=== PATIENT | female | born 1990 | race Caucasian/White ===

== ENCOUNTER 2017-03-09 05:08 | Day surgery (SDC) | payer OTHER ==
[2017-03-07 12:41] VITALS: BMI 23.8
--- NOTE | 2017-03-09 08:29 | HP ---
History & Physical Update - History History: No Change - Physical Physical: No Change - Assessment Assessment: No Change - Plan Plan: No Change (High grade cervical dysplasia - for LEEP cone biopsy)
[2017-03-09] MEDS ORDERED: LACTATED RINGERS SOLUTION 1,000 ML IV SCH (08:30)
[2017-03-09] MEDS ORDERED: ACETAMINOPHEN 325 MG TABLET (FP) PO PRN (08:30)
[2017-03-09] MEDS ORDERED: IBUPROFEN 800 MG/8 ML IJ IVPB PRN (08:30)
[2017-03-09] MEDS ORDERED: MIDAZOLAM HCL 2 MG/2 ML SINGLE DOSE VIAL ONE (09:04)
[2017-03-09] MEDS ORDERED: PROPOFOL 20 ML ONE (09:04)
[2017-03-09] MEDS ORDERED: LIDOCAINE HCL/PF 2% SDV 5ML VIAL ONE (09:05)
[2017-03-09] MEDS ORDERED: KETOROLAC TROMETHAMINE 30 MG/1 ML VIAL ONE (09:05)
[2017-03-09] MEDS ORDERED: DEXAMETHASONE SOD PHOSPHATE 4 MG/1 ML VIAL ONE (09:05)
[2017-03-09] MEDS ORDERED: FERRIC SUBSULFATE 500 ML BOTTLE TP ONE (09:37)
--- NOTE | 2017-03-09 10:03 | OP ---
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 endocervical biopsy Estimated Blood Loss (mls): 25 Operative Report Dictated: Yes
[2017-03-09] MEDS ORDERED: ONDANSETRON 4 MG/2 ML VIAL IVPUSH PRN (10:14)
[2017-03-09] MEDS ORDERED: ACETAMINOPHEN 1000 MG/100 ML VIAL (NON FORMULARY) IVPB ONE (10:14)
[2017-03-09] MEDS ORDERED: oxyCODONE HCL 5 MG TABLET PO PRN (10:14)
[2017-03-09 11:07] VITALS: TEMP 98.1
[2017-03-09 13:17] VITALS: BP 114/72; PULSE 70
--- NOTE | 2017-03-10 07:49 | OP ---
DATE OF OPERATION: DATE OF DICTATION: 03/09/2017 PREOPERATIVE DIAGNOSIS: Cervical dysplasia. POSTOPERATIVE DIAGNOSIS: Cervical dysplasia. PROCEDURE PERFORMED: Loop electrosurgical excision procedure cone biopsy. SURGEON: Janneth Lino DO ANESTHESIA: General. ANESTHESIOLOGIST: Rene Lay CRNA COMPLICATIONS: None. ESTIMATED BLOOD LOSS: 25 mL. SPECIMENS: Specimens removed included cervical cone biopsy. COUNTS: Sponge and instrument count correct at the end of the case. DISPOSITION: Stable to PACU. INDICATIONS: The patient is 26-year-old female who was diagnosed in the office with high-grade cervical dysplasia. It was recommended at this time to undergo an excisional procedure. The patient was consented on her options and signed consents for a LEEP cone biopsy procedure in the office. The patient was admitted to [facility] on March 09, 2017. Consents were reconfirmed. DESCRIPTION OF PROCEDURE: The patient was taken back to the operating room, where she was given general anesthesia and then placed in the dorsal lithotomy position. She was prepped and draped in the usual sterile fashion, and a hard time-out was performed. A plastic speculum was placed inside the vagina. Using the large LEEP loop, a cone biopsy was collected in a single pass. The specimen was sent to Pathology for permanent evaluation. A second pass was taken for another cervical biopsy with the small LEEP loop, secondary to positive endocervical curettage in the office. Bleeding was controlled with roller-ball cautery at this time and Monsel solution. After hemostasis was achieved, all instruments were removed from the surgical field. Counts were reported to be correct. The patient tolerated the procedure well and was recovering in stable condition in the PACU after the procedure. JANNETH LINO DO /[id number]
--- NOTE | 2017-03-12 12:30 | PATH ---
Surgical Pathology Report Patient Name: ANYI RAMOS [facility]. Rec. #: [id number] /Age/Gender: 1990 (Age: 26) / F Account: [id number] Location: [facility] SURGICAL Taken: 03/09/2017 Received: 03/09/2017 Reported: 03/12/2017 Physicians: Janneth Lino M.D. Specimen(s) Received A: LEEP CONE BIOPSY, ENDOCERVICAL B: LEEP CONE BIOPSY Clinical History HPV/cervical dysplasia Final Diagnosis A. CERVIX, ENDOCERVICAL LEEP CONE BIOPSY: ENDOCERVICAL MUCOSA WITH CHRONIC CERVICITIS. NEGATIVE FOR DYSPLASIA. B. CERVIX, LEEP CONE BIOPSY: CERVICAL SQUAMOUS AND ENDOCERVICAL MUCOSA WITH HIGH GRADE SQUAMOUS INTRAEPITHELIAL LESION (CERVICAL INTRAEPITHELIAL NEOPLASIA 3/TRINA 3) WITH FOCAL GLANDULAR INVOLVEMENT IN 6-9:00 AND 9-12:00 QUADRANTS; FOCI OF LOW GRADE SQUAMOUS INTRAEPITHELIAL LESION ALSO PRESENT. SURGICAL RESECTION MARGINS: FINAL RESECTION MARGINS APPEAR NEGATIVE FOR HIGH GRADE DYSPLASIA (ALSO REFER TO PART A). TRANSFORMATION ZONE: PRESENT. Electronically Signed Mil Muniz M.D. Gross Description A. Received in formalin, labeled "LEEP cone biopsy, endocervical" are 2 fragments of torre-pink soft tissue and measuring 1.0 x 0.9 x 0.4 cm and 0.7 x 0.5 x 0.3 cm. both specimens are inked black. The larger specimen is serially sectioned and submitted in cassette #1; the smaller specimen is serially sectioned and submitted in cassette #2. B. Received in formalin, labeled "LEEP cone biopsy" two fragments of torre soft tissue 2.5 x 1.5 x 0.7 cm and a 1.7 x 1 x 0.5 cm. The larger specimen demonstrates a suture designating 12:00 aspect per surgeon. The endocervical aspect of the largest specimen is in blue, the rest of the specimen is inked black. The specimen is serially sectioned and submitted in 4 cassettes: 12-3:00 in cassette #1, 3-6:00 cassette #2, 6-9:00 cassette #3, 9-12:00-cassette #4. The smaller specimen is inked blue, serially sectioned and submitted entirely in cassette #5. AF/03/09/2017 final/03/09/2017
== END 2017-03-09 12:20 | disposition home or self-care (01) ==
LOC: JASU-SURG 05:08
PROVIDERS: ATTEND Obstetrics & Gynecology
PROC: 0UBC7ZX Excision of Cervix, Via Natural or Artificial Opening, Diagnostic (ICD-10-PCS; principal; 2017-03-09 08:30)
DX: D06.7 Carcinoma in situ of other parts of cervix (principal)
CPT/HCPCS: 88307-TC; 94760

== ENCOUNTER 2017-11-19 22:26 | Emergency (ER) | payer OTHER ==
[2017-11-19 22:35] VITALS: BMI 22.6
[2017-11-19] MEDS ORDERED: SODIUM CHLORIDE 1,000 ML IV STA (23:14)
[2017-11-19] MEDS ORDERED: EPINEPHrine 1:1,000 0.3 MG/0.3 ML SYR IM ONE (23:14)
[2017-11-19] MEDS ORDERED: methylPREDNISolone NA SUCC 125 MG/2 ML VIAL IVPB ONE (23:14)
[2017-11-19] MEDS ORDERED: ALBUTEROL SO4 0.083% IH SOL 2.5 MG/3 ML VIAL.NEB. NEB ONE (23:14)
--- NOTE | 2017-11-19 23:14 | PDOC ---
History of Present Illness - General Chief Complaint: Allergic Reaction Stated Complaint: ALLERGIC REACTION Time Seen by Provider: 11/19/17 23:07 History Source: Patient - History of Present Illness Initial Comments: 11/20/17 01:40 27-year-old female reports that she has been using serum for her face for the last 3 days today noted to have generalized facial swelling, lip swelling, throat irritation and chest tightness with generalized body hives. Patient reports no other exposure. Denies past medical history patient reports that she took one dose of Benadryl at 5 PM with no relief in symptoms. Past History - Past Medical History Allergies/Adverse Reactions: Allergies Allergy/AdvReac Type Severity Reaction Status Date / Time No Known Allergies Allergy Verified 11/19/17 22:32 Home Medications: Ambulatory Orders EPINEPHrine (EPI-PEN 0.3MG) [Epipen 0.3MG -] 0.3 mg IM ASDIR #2 pens 11/20/17 Famotidine [Pepcid -] 20 mg PO BID #14 tablet 11/20/17 predniSONE [Deltasone -] 40 mg PO DAILY #8 tablet 11/20/17 Anemia: No Asthma: No Cancer: No Cardiac Disorders: No CVA: No COPD: No CHF: No Dementia: No Diabetes: No GI Disorders: No Disorders: No HTN: No Hypercholesterolemia: No Liver Disease: No Seizures: No Thyroid Disease: No - Surgical History Abdominal Surgery: No - Suicide/Smoking/Psychosocial Hx Smoking Status: Yes Smoking History: Never smoked Have you smoked in the past 12 months: No Number of Cigarettes Smoked Daily: 2 Hx Alcohol Use: Yes (OCCAS) Drug/Substance Use Hx: No Substance Use Type: Alcohol Hx Substance Use Treatment: No Review of Systems - Review of Systems Able to Perform ROS?: Yes Is the patient limited Somali proficient: No HEENTM: Yes: Other (throat irritation) Respiratory: No: Symptoms reported, See HPI, Cough, Orthopnea, Shortness of Breath, SOB with Exertion, SOB at Rest, Stridor, Wheezing, Productive cough, Hemoptysis, Other Integumentary: Yes: Other (hives and upper lip edema, ) *Physical Exam - Vital Signs Last Vital Signs Temp Pulse Resp BP Pulse Ox 98.5 F 93 H 20 148/83 100 11/19/17 22:33 11/19/17 22:33 11/19/17 22:33 11/19/17 22:33 11/19/17 22:33 - Physical Exam General Appearance: Yes: Appropriately Dressed HEENT: positive: Other (+ upper lip edema, uvula midline) Neck: negative: Tender, Trachea midline, Normal Thyroid, Rigid, Supple, Carotid bruit, Decreased range of motion, Stridor, Lymphadenopathy (R), Lymphadenopathy (L), Rigidity, Tender lateral, Tender midline, Thyromegaly, Other Respiratory/Chest: positive: Lungs Clear, Normal Breath Sounds Gastrointestinal/Abdominal: positive: Normal Bowel Sounds, Soft Musculoskeletal: positive: Normal Inspection Extremity: positive: Normal Capillary Refill, Normal Inspection, Normal Range of Motion Integumentary: positive: Normal Color, Dry, Warm Neurologic: positive: Fully Oriented, Alert, Normal Mood/Affect ED Treatment Course - LABORATORY CBC & Chemistry Diagram: 11/19/17 23:40 11/19/17 23:40 Progress Note - Progress Note Progress Note: A: angioedema P: epi solumedrol IVF pepcid benadryl monitor for recurrent symptoms or worsening symptoms Medical Decision Making - Medical Decision Making 11/20/17 02:35 Hives and oral swelling improved. patient reports feeling better. will d/c home *DC/Admit/Observation/Transfer Diagnosis at time of Disposition: Angioedema Qualifiers: Encounter type: initial encounter Qualified Code(s): T78.3XXA - Angioneurotic edema, initial encounter - Discharge Dispostion Disposition: HOME - Prescriptions Prescriptions: EPINEPHrine (EPI-PEN 0.3MG) [Epipen 0.3MG -] 0.3 mg IM ASDIR #2 pens Famotidine [Pepcid -] 20 mg PO BID #14 tablet predniSONE [Deltasone -] 40 mg PO DAILY #8 tablet - Referrals Referrals: Chinedu Nichols [Primary Care Provider] - - Patient Instructions Printed Discharge Instructions: DI for Adverse Drug Reaction -- Allergic Additional Instructions: use epipen for severe reactions as per direction take prednisone as prescribed. take pepcid as prescribed, follow up with your doctor. return to the ER if symptoms worsen - Post Discharge Activity
[2017-11-19] MEDS ORDERED: EPINEPHrine/PF 1 MG/1 ML (1:1,000) AMPULE ONE (23:23)
[2017-11-19] MEDS ORDERED: methylPREDNISolone NA SUCC 125 MG/2 ML VIAL ONE (23:29)
[2017-11-19] MEDS ORDERED: EPINEPHrine/PF 1 MG/1 ML (1:1,000) AMPULE IM ONE (23:30)
[2017-11-19] MEDS ORDERED: FAMOTIDINE 20 MG/50 ML IVPB 20 MG/50 ML MG IVPB ONE ×2 (23:30→23:43)
[2017-11-19 23:47] LABS: BASO % 0.3 % (0-2.0); EOS % 4.5 % (0-4.5); HEMATOCRIT 40.5 % (32.4-45.2); LYMPH % 28.9 % (8-40); MCH 30.4 pg (25.7-33.7); MCHC 34.6 g/dl (32.0-36.0); MEAN CELL VOLUME 87.8 fl (80-96); MEAN PLT VOLUME 8.8 fl (7.5-11.1); MONO % 7.2 % (3.8-10.2); NEUT % 59.1 % (42.8-82.8); PLATELET COUNT 262 K/MM3 (134-434); RBC 4.62 M/mm3 (3.60-5.2); RDW 13.6 % (11.6-15.6); WHITE BLOOD COUNT 11.2 K/mm3 (4.0-10.0)
[2017-11-20 00:25] LABS: ANION GAP 10 (8-16); BLOOD UREA NITROGEN 13 mg/dL (7-18); CALCIUM 9.8 mg/dL (8.5-10.1); CHLORIDE 103 mmol/L (98-107); CO2 27 mmol/L (21-32); CREATININE 0.6 mg/dL (0.55-1.02); GLUCOSE,RANDOM 98 mg/dL (74-106); SODIUM 140 mmol/L (136-145)
[2017-11-20 00:28] LABS: POTASSIUM 3.6 mmol/L (3.5-5.1)
[2017-11-20 02:36] VITALS: BP 119/70; PULSE 88; TEMP 97.9
== END 2017-11-20 02:47 | disposition home or self-care (01) ==
LOC: JER 22:26
PROC: 3E0F7GC Introduction of Other Therapeutic Substance into Respiratory Tract, Via Natural or Artificial Opening (ICD-10-PCS; principal; 2017-11-19)
PROC: 3E0337Z Introduction of Electrolytic and Water Balance Substance into Peripheral Vein, Percutaneous Approach (ICD-10-PCS; 2017-11-19)
PROC: 3E033GC Introduction of Other Therapeutic Substance into Peripheral Vein, Percutaneous Approach (ICD-10-PCS; 2017-11-19)
PROC: 3E0333Z Introduction of Anti-inflammatory into Peripheral Vein, Percutaneous Approach (ICD-10-PCS; 2017-11-19)
PROC: 3E023GC Introduction of Other Therapeutic Substance into Muscle, Percutaneous Approach (ICD-10-PCS; 2017-11-19)
DX: T78.3XXA Angioneurotic edema, initial encounter (principal); T49.8X5A Adverse effect of other topical agents, initial encounter; Y92.038 Other place in apartment as the place of occurrence of the external cause
CPT/HCPCS: 36415; 80048; 84703; 85025; 94640; 96361; 96365; 96372; 96375; 99283-25; J7030